=== PATIENT | male | born 1990 | race Caucasian/White ===

== ENCOUNTER 2019-10-02 08:56 | Outpatient (RCR) | payer OTHER, SELFPAY | END 2019-10-15 23:59 | disposition home or self-care (01) | LOC: SOT 08:56 | PROVIDERS: PCP Family Medicine; Referring Provider Family Medicine; Visit Provider Family Medicine | DX: S61.209D Unspecified open wound of unspecified finger without damage to nail, subsequent encounter (principal) | CPT/HCPCS: 97110; 97140; 97166 ==

== ENCOUNTER 2019-10-16 06:00 | Outpatient (RCR) | payer OTHER, SELFPAY | END 2019-10-29 23:00 | disposition home or self-care (01) | LOC: SOT 06:00 | PROVIDERS: PCP Family Medicine; Referring Provider Family Medicine; Visit Provider Family Medicine | DX: S61.209D Unspecified open wound of unspecified finger without damage to nail, subsequent encounter (principal); X58.XXXD Exposure to other specified factors, subsequent encounter | CPT/HCPCS: 97110 ==

== ENCOUNTER 2021-12-25 18:14 | Emergency (ER) | payer OTHER, SELFPAY ==
[2021-12-25 18:26] VITALS: TEMP 37; BMI 40.6
[2021-12-25 18:29] VITALS: BP 157/96; PULSE 93; RESP 18; O2SAT 97
--- NOTE | 2021-12-25 18:39 | XRR_ITS ---
PROCEDURE INFORMATION: Exam: XR Right Ankle Exam date and time: 12/25/2021 6:51 PM Age: 31 years old Clinical indication: Injury or trauma; Fall; Dislocation and sprain or strain; Ankle; Right; Additional info: Fall, pain and deformity R ankle TECHNIQUE: Imaging protocol: Radiologic exam of the Right ankle. Views: 3 or more views. COMPARISON: No relevant prior studies available. FINDINGS: Bones/joints: Displaced fractures through the medial malleolus and posterior aspect of the distal tibia with dislocation of the tibiotalar joint. Partially visualized displaced fracture of the mid/distal fibular diaphysis. Soft tissues: Soft tissue swelling around the ankle. XR/XR ankle RT min 3V* [id number] IMPRESSION: Displaced fractures through the medial malleolus and posterior aspect of the distal tibia with dislocation of the tibiotalar joint. There is also a partially visualized displaced fracture of the mid/distal fibular diaphysis.
[2021-12-25 19:02] VITALS: RESP 18
[2021-12-25] MEDS: HYDROmorphone 1 mg/mL INJ 1 mL IVP ×3 (19:02→20:33)
[2021-12-25] MEDS: ondansetron 2 mg/ML SDV 2 mL 4 MG IVP (19:02)
[2021-12-25 19:10] VITALS: PULSE 80
[2021-12-25] MEDS: midazolam 1 mg/mL INJ 2 mL 2 MG IVP (19:51)
--- NOTE | 2021-12-25 20:01 | XRR_ITS ---
PROCEDURE INFORMATION: Exam: XR Right Ankle Exam date and time: 12/25/2021 8:05 PM Age: 31 years old Clinical indication: Injury or trauma; Fall; Fracture, traumatic; Closed fracture; Ankle; Left; Not specified; Additional info: Post reduction TECHNIQUE: Imaging protocol: Radiologic exam of the Right ankle. Views: 1 or 2 views. COMPARISON: CR (LOW EXM, ) 12/25/2021 6:51 PM FINDINGS: Tubes, catheters and devices: There is a splint. Bones/joints: There is a comminuted fracture of the mid diaphysis right fibula and transverse fracture through the medial malleolus. Posterior malleolar fracture fragment is also present best appreciated on the oblique lateral view. There is improved alignment of the ankle dislocation status post reduction however the tibia is still displaced/subluxing posteriorly with respect to the talus. Soft tissues: There is soft tissue edema. XR/XR ankle RT 2V [id number] IMPRESSION: 1. There is a comminuted fracture of the mid diaphysis right fibula and transverse fracture through the medial malleolus. Posterior malleolar fracture fragment is also present best appreciated on the oblique lateral view. 2. There is improved alignment of the ankle dislocation status post reduction however the tibia is still displaced/subluxing posteriorly with respect to the talus.
--- NOTE | 2021-12-25 21:06 | CTR_ITS ---
PROCEDURE INFORMATION: Exam: CT Right Lower Extremity Without Contrast, Ankle Exam date and time: 12/25/2021 9:15 PM Age: 31 years old Clinical indication: Injury or trauma; Fall; Fracture, traumatic; Closed fracture; Ankle; Right; Not specified; Additional info: Ankle FX. TECHNIQUE: Imaging protocol: CT of the Right lower extremity without contrast was performed. Exam focused on the ankle. Radiation optimization: All CT scans at this facility use at least one of these dose optimization techniques: automated exposure control; mA and/or kV adjustment per patient size (includes targeted exams where dose is matched to clinical indication); or iterative reconstruction. COMPARISON: CR XR ankle RT 2V [id number] 12/25/2021 8:05 PM RADIATION DOSE METRICS: Total DLP (mGy-cm): 118.35 FINDINGS: Bones/joints: There is a splint. There is a transverse fracture through the medial malleolus and fracture of the posterior malleolus with 5 mm proximal displacement with respect to the articular surface of the tibia. No acute fracture or osteochondral defect of the talus. Fracture of the fibula diaphysis is not included in the field of view except on the citrus fruit packer. There is widening of the distal tibiofibular syndesmosis with a fracture fragment between the distal tibia and fibula measuring 9 x 8 x 5 mm that appears to be originating from the posterior lateral tibia. Distance between the distal tibia and fibula at the ankle joint is 1.4 cm. There is no dislocation of the ankle joint and good reduction is noted from the prior dislocation. There is still mild medial displacement of the tibia with respect to the talar articular surface secondary to the marked widening of the tibiofibular syndesmosis. No additional fracture is identified in the hindfoot. The Lisfranc joint alignment is intact. Soft tissues: There is abundant soft tissue edema. CT/CT ankle RT wo con* [id number] IMPRESSION: Fractures of the distal tibia including the medial malleolus, posterior malleolus and comminuted fracture of the diaphysis of the fibula only visualized on the citrus fruit packer. There is marked widening of the distal tibiofibular syndesmosis with mild medial displacement/subluxation of the tibia with respect to the talus but otherwise there is good reduction of the previously visualized ankle dislocation.
--- NOTE | 2021-12-25 21:42 | W.ED.EXTPRO ---
HPI - Extremity Problem General: Chief complaint: Extremity Injury, Lower Stated complaint: right ankle injury Time Seen by Provider: 12/25/21 18:19 Source: patient History of Present Illness: 31-year-old male who [place]. He experienced immediate right ankle and leg pain. He has a deformity. EMS was called, and splint was placed. No bleeding. No significant numbness no other injury. The patient did not hit his head. He remembers the event. MD Complaint: extremity pain and extremity swelling Onset (ago): hour(s) Pain Consistency: constant Location: right and lower extremity Quality: stabbing and aching Radiation: proximal Relieving factors: nothing Exacerbating factors: range of motion Associated symptoms: Deny chest pain, fever(s) or short of breath Review of Systems Const: Denies: fever(s) Eyes: Denies: change in vision Card: Denies: chest pain or palpitations Resp: Denies: dyspnea, productive cough or non-productive cough GI: Denies: abdominal pain, nausea or vomiting Musc: Denies: neck pain or back pain Neuro: Denies: headache(s) Physical Exam Const: GENERAL APPEARANCE: cooperative; not comfortable, not in distress, not ill appearing and not frail appearing HENMT: COMMON NORMALS: normocephalic, atraumatic and Normal external nose present HEAD & SCALP: normocephalic and atraumatic FACE & SINUS: normal facial exam and face symmetric NOSE: Normal external nose present Eye: COMMON NORMALS: Equal, round and reactive pupils present and EOMs intact bilaterally PUPIL: Yes Equal, round and reactive pupils present Neck/C-Spine: COMMON NORMALS: full ROM GENERAL: Yes trachea midline Chest: CHEST: Yes Symmetrical chest wall rise Resp: COMMON NORMALS: normal respiratory effort, No use of accessory muscles and clear to auscultation bilaterally AUSCULTATION: clear to auscultation bilaterally Cardio: COMMON NORMALS: regular rate and regular rhythm RATE: regular rate RHYTHM: regular rhythm GI: COMMON NORMALS: Normal to inspection, nondistended, normoactive bowel sounds present and Soft to palpation PALPATION: Yes Soft to palpation Extremity: NARRATIVE EXTREMITY EXAM: Exam of the right lower extremity reveals rotational deformity of the right ankle. There is soft tissue swelling. There is tenderness along the ankle, as well as the distal leg. No knee joint line tenderness. Pulses are intact. Capillary refill is normal. Sensation is intact. No open sites. There is some mild skin tenting of the medial malleolus Neuro: BRAEDEN COMA SCALE: document GCS findings [place] coma scale eye opening: Spontaneous [place] coma scale verbal response: Orientated [place] coma scale motor response: Obey commands Braeden coma scale total score: 15 Procedures Orthopedic Fracture Reduction Fracture #1: Time Out Performed: Yes Side: right Fracture Reduction Location: tibia and fibula Analgesia: procedural sedation Technique: direct manipulation and traction/counter-traction Post Reduction X-rays Demonstrate: acceptable reduction Post-reduction neuro exam: intact Post-reduction vascular exam: intact Splint Applied: Yes Patient Tolerated Procedure: well and no complications Procedural Sedation Indication: fracture/dislocation reduction ASA Class: II Preparation: groundwater monitoring technician applied, pulse oximeter, supplemental O2 applied, suction/airway equipment at bedside and IV secured Midazolam dose (mg): 2 IV Etomidate dose (mg): 20 Patient Tolerated Procedure: well and no complications Complications: none Course Vital Signs: Vital signs: Vital Signs Temperature 98.6 F 12/25/21 18:26 Pulse Rate 80 12/25/21 19:10 Respiratory Rate 18 12/25/21 19:02 Blood Pressure 157/96 12/25/21 18:29 Pulse Oximetry 97 12/25/21 18:29 MDM - Extremity (Nontraumatic) Medical Decision Making Patient with a fracture dislocation of the ankle. Medial malleolus posterior malleolus, and mid fibula. He was sedated, reduced, and placed in a stirrup and posterior long-leg splint. Spoke with foot/ankle surgery. They request a CT of the ankle on the way out the door. Patient is comfortable going home, to follow-up next week for likely ORIF. Surgeon is aware. Lab Data Radiology Impressions Ankle X-Ray 12/25/21 20:01 IMPRESSION: 1. There is a comminuted fracture of the mid diaphysis right fibula and transverse fracture through the medial malleolus. Posterior malleolar fracture fragment is also present best appreciated on the oblique lateral view. 2. There is improved alignment of the ankle dislocation status post reduction however the tibia is still displaced/subluxing posteriorly with respect to the talus. Ankle CT 12/25/21 21:06 IMPRESSION: Fractures of the distal tibia including the medial malleolus, posterior malleolus and comminuted fracture of the diaphysis of the fibula only visualized on the fighter pilot. There is marked widening of the distal tibiofibular syndesmosis with mild medial displacement/subluxation of the tibia with respect to the talus but otherwise there is good reduction of the previously visualized ankle dislocation. Discharge Plan Discharge Patient Disposition: Home Clinical Impression: Ankle fracture Qualifiers: Encounter type: initial encounter Fracture type: closed Laterality: right Qualified Code(s): S82.891A - Other fracture of right lower leg, initial encounter for closed fracture Condition: Stable Prescriptions: New Percocet 7.5-325 mg tablet 1 tab PO Q6H PRN (Reason: pain) Qty: 12 0RF Discharge Orders: Discharge ED (Routine); Ordered 12/25/21 Ordered By: Jann Carcamo Referrals: Lam Rehman DPM [Physician] - 1-3 days Joel Umana MD [Primary Care Provider] - Patient Instructions: Ankle Fracture (ED), Opioid Safety Activity Restrictions/Additional Instructions: Call the orthopedic clinic on Monday. They will set you up for an appointment for surgical planning for your ankle. Ice very frequently for the next 48 hours especially. Pain medication as directed. Return for excruciating pain with movement of your toes, worsening pain despite treatment, fever, other concerning symptoms. Stay in your splint until seen by them. Coding Level of Care Code ED Bleach Range Operator for Brigette Fwyony Exam Comprehensive
== END 2021-12-25 21:32 | disposition home or self-care (01) ==
PROVIDERS: Emergency Provider Emergency Medicine; PCP Family Medicine
DX: S82.841A Displaced bimalleolar fracture of right lower leg, initial encounter for closed fracture (principal); S82.491A Other fracture of shaft of right fibula, initial encounter for closed fracture; W09.0XXA Fall on or from playground slide, initial encounter
CPT/HCPCS: 27752; 73600; 73610; 73700; 96374; 96375; 96376; 99285; J1170; J2250; J2405; J3490

== ENCOUNTER 2021-12-27 15:39 | Outpatient (CLI) | payer OTHER, SELFPAY | END 2021-12-27 15:40 | disposition home or self-care (01) | LOC: SPT 15:39 | PROVIDERS: PCP Family Medicine; Visit Provider Podiatrist Foot & Ankle Surgery | DX: S82.851D Displaced trimalleolar fracture of right lower leg, subsequent encounter for closed fracture with routine healing (principal); X58.XXXD Exposure to other specified factors, subsequent encounter | CPT/HCPCS: 97760; L4361 ==

== ENCOUNTER 2021-12-31 11:03 | Day surgery (SDC) | payer OTHER, SELFPAY ==
[2021-12-30 14:21] VITALS: BMI 40.6
[2021-12-31] VITALS (20 sets, daily range): BP systolic 139–179; BP diastolic 77–109; PULSE 96–117; RESP 12–24; TEMP 36.6–36.9; O2SAT 93–100
--- NOTE | 2021-12-31 | SCC_ITS ---
Procedure done: Open reduction internal fixation right trimalleolar fracture 16019 53.1 seconds of fluoroscopic guidance, for a cumulative dose of 1.9 mGy, was provided to Dr. Rehman by the radiology department. C-arm images of the RIGHT ankle were saved for the patient's permanent record. [facility]
--- NOTE | 2021-12-31 | XR_ITS ---
WS: [id number] INTRAOPERATIVE TECHNIQUE: 4 Spot fluoroscopic images for intraoperative purposes. FLUOROSCOPY TIME: 53.1 seconds CLINICAL INFORMATION: [facility] COMPARISON: None. FINDINGS: Plate and screw fixation across the spiral fracture mid fibula shaft. Screw fixation across the ankle syndesmosis and medial malleolus. XR/XR ankle RT min 3V* [id number] IMPRESSION: Images obtained for intraoperative purposes.
[2021-12-31] MEDS: gabapentin 300 mg Capsule PO (11:35)
[2021-12-31] MEDS: CELEcoxib 200 mg Capsule 400 MG PO (11:35)
[2021-12-31] MEDS: sodium chloride 0.9% 1,000 ML 30 ML IV (11:35)
--- NOTE | 2021-12-31 12:39 | ANES.PREANE2 ---
Pre-Anesthetic Assessment Height/Weight: Height 1.85 m Weight 139.706 kg Temp Pulse Resp BP Pulse Ox O2 Del Method 98.4 F 117 H 18 167/109 96 12/31/21 11:23 12/31/21 11:23 12/31/21 11:23 12/31/21 11:23 12/31/21 11:23 12/31/21 11:23 Preop Diagnosis: Right trimalleolar fracture Operation Date: 12/31/21 12:40 Proposed Procedures p Open reduction internal fixation right trimalleolar fracture 43593,S82.851A(Right) - Lam Rehman DPM Familial anesthetic complications: None Was Beta Lianne taken within 24 hours: N/A Was Clonidine taken within 24 hours: N/A Last intake: Intake Last Liquid Date 12/30/21 Last Liquid Time 06:00 Last Solid Date 12/30/21 Last Solid Time 20:00 Social No alcohol and No tobacco Exam alert, oriented x 3, clear to auscultation bilaterally and regular rate & rhythm Airway Submandibular: within normal limits Cervical ROM: within normal limits Mallampati: Class I Dentition: full History/ROS No significant complaints Pulmonary None reported CV/HEM None reported None reported Hepatic None reported GI None reported Metabolic None reported Musc/skel None reported Neuropsych None reported Anesthetic Plan ASA status: 1 Anesthesia: Anesthesia Evaluation and General Other: We discussed risk and benefits of general anesthesia including PONV, sore throat (sometimes severe), corneal abrasion, positioning and peripheral nerve injuries, life threatening allergic reaction, post operative ICU admission requiring prolonged intubation, stroke, heart attack, , and rare incidences of recall. Patient consents to proceed with general anesthesia. After time out sterile prep, using sterile technique, and using real time US guidance for target selection needle was inserted with real time visualization of needle entry and real time visualization of needle advancement toward intended target. Negative aspiration. LA injected incrementally with negative aspiration every 5 cc and real time US visualization of LA spread throughout procedure. Tolerated well. Image(s) saved. Patient decline pre op nerve block. Consents to PRN post op popliteal and adductor canal blocks if needed. Plan multimodal analgesia with general and possible post op block. Risk of > 500 ml blood loss (7ml/kg in children): No Medications/Allergies Home Medications Medication Instructions Recorded Confirmed Last Taken Type Cam Boot to the Right #1 ea 12/27/21 12/27/21 Unknown Rx ondansetron HCl 8 mg tablet 8 mg PO Q8H PRN nausea and 12/27/21 12/31/21 12/29/21 Rx vomiting #20 tabs oxycodone-acetaminophen 5 mg-325 1 tab PO Q6H PRN pain 7 days #28 12/28/21 12/31/21 12/31/21 Rx mg tablet (Percocet) tabs Allergies Allergy/AdvReac Type Severity Reaction Status Date / Time No Known Allergies Allergy Verified 12/30/21 14:19 Current Medications Generic Name Dose Route Start Last Admin Trade Name Freq PRN Reason Stop Dose Admin Sodium Chloride 1,000 mls @ 30 mls/hr 12/31/21 11:15 12/31/21 11:35 Sodium Chloride 0.9% IV 01/01/22 11:14 30 mls/hr .Q24H DAWNA Administration Data Anesthesia Cardiac Studies: No Data to Display
[2021-12-31] MEDS: acetaminophen 1,000 MG/100 ML PIGGYBACK 400 MG IV (12:57)
[2021-12-31] MEDS: magnesium sulfate premix 2 GM/50 ML PIGGYBACK IV (13:14)
--- NOTE | 2021-12-31 13:18 | W.PM.OPSUD ---
Surgery/Procedure H&P Update DATE OF PROCEDURE: December 31, 2021 DATE H&P PERFORMED: 12/27/21 CHANGES TO PREVIOUS DOCUMENTATION: none PREOP DIAGNOSIS: Right trimalleolar fracture PLANNED PROCEDURE: Operation Date: 12/31/21 12:40 Proposed Procedures p Open reduction internal fixation right trimalleolar fracture 83622,S82.851A(Right) - Lam Rehman DPM
[2021-12-31] MEDS: clindamycin 600 MG/50 ML PREMIX 100 MG IV (13:30)
[2021-12-31] MEDS: lidocaine 1% INJ 50 mL 20 ML INJECTION (14:14)
--- NOTE | 2021-12-31 15:59 | PM.OP ---
Operative Report Date of procedure: December 31, 2021 Pre-op diagnosis: Right trimalleolar fracture Post-op diagnosis: Right trimalleolar fracture Post-op findings: None Procedure done: Open reduction internal fixation right trimalleolar fracture 55457 Implants: [place] 28 one third tubular plate fibula and release syndesmotic screw. [place] 28 4.0 millimeter screw x2 at medial malleolus. Specimens removed/disposition: None Pathology: None Surgeon: Lam Rehman D.P.M. Driving School Instructor: Juan Pablo Estimated blood loss: 20 See intraoperative documentation IV fluids: None Urine output: None Complications: None Findings: None Brief History: Right trimalleolar fracture date of injury 12/25/2021, underwent closed reduction with excellent improvement in alignment of fracture and relocation of the talus within the mortise. Patient examined and evaluated, findings and treatment options were discussed with patient at length.? Educated patient on the importance of surgical intervention due to the gross instability of his ankle involving a high fibular fracture, displaced medial malleolus fracture and posterior malleolus fracture.? Patient is agreeable and like to proceed.? Will schedule for this Monday to allow soft tissue edema to subside.? There is no fracture blisters or lacerations or abrasions to the right ankle.? Will continue to monitor closely.? Tentatively scheduled for ORIF this Monday outpatient.? I reviewed at length with the patient, the risks, potential complications, benefits, alternatives, expectations, and typical outcomes associated with the surgery. The risks and potential complications were explained in detail, including but not limited to infection, wound dehiscence or soft tissue complications, bleeding and hematoma, chronic edema, neuritis or nerve damage producing numbness or chronic pain, CRPS, failure to relieve pain or worsening pain, thick / painful / unsightly scar, limited motion / stiffness, malposition, delayed union, malunion, or nonunion, fracture, reaction to implants, anesthetic complications, venous thromboembolism, and deformity recurrence.? I discussed the notion of no regrets with the patient as it pertains to complications and outcomes. The patient seemed to understand the nature of the proposed care and required convalescence. They asked appropriate questions, answered to their satisfaction. They are aware no guarantees can be made as to a satisfactory outcome and they understand there may be other possible unforeseen complications or outcomes not listed here that will be treated accordingly if they arise. There were no written or implied guarantees given to the patient. They gave informed consent to proceed. Procedure: Under mild sedation the patient was brought to the operating room and placed on the operating table in supine position. A timeout was performed. Anesthesia was then administered by the anesthesia service. Of note patient declined popliteal block preoperatively. Well-padded pneumatic tourniquet applied to the high thigh right lower extremity. The right lower extremity was then scrubbed, prepped and draped utilizing normal aseptic technique. Right foot ankle and leg were then exanguinated with an Esmarch bandage and the tourniquet inflated to 250 mmHg. Attention was directed to the lateral aspect of the right fibula where a linear longitudinal incision was made directly over the lateral fibula distally with a #15 blade. Dissection was carried down through subcutaneous tissue to the layer of crural fascia which was incised with further dissection down the layer of periosteum utilizing sharp and blunt technique. Care was taken to retract and preserve neurovascular and tendinous structures. All bleeders were ligated and cauterized as necessary. Fibula was pulled out to length and a one third tubular plate was utilized to fixate the fibular fracture with locking screws both proximal and distal with excellent bony apposition and compression noted. Attention was then directed to the medial malleolus where a curvilinear incision was made at the medial ankle directly over the medial malleolus with a #15 blade with dissection carried down through subcutaneous tissue to the layer periosteum utilizing sharp and blunt technique. Care was taken to retract and preserve neurovascular and tendon structures. All bleeders were ligated and cauterized as necessary. Medial malleolus fracture was curettaged of hematoma followed by saline flush. Periosteal flap was excised that was within the fracture. The fracture was then reduced and fixated utilizing standard AO technique with 2 screw fashion and parallel these were [place] 28 for 0.0 mm headed partially-threaded screws with excellent bony apposition and compression noted. AP, oblique and lateral views confirmed the screws maintained alignment of the medial malleolus and did not violate the ankle mortise. Cotton hook test indicated syndesmotic disruption with diastases and increased tib-fib clear space. A [place] 28 release screw was inserted from lateral to medial in a Quadra cortical fashion utilizing standard technique recommended by manufacture under a 2 finger tightness with a torque grain combine driver. This was done with ankle joint in dorsiflexion and syndesmotic reduction clamps employed. Screw was advanced parallel to the ankle mortise and approximately 2 cm proximal. Smooth range of motion appreciated at the right ankle. 3 standard views showed congruent ankle mortise without hardware violating the ankle joint. The incisions were flushed with copious amounts of sterile saline solution followed by closure with periosteum reapproximated utilizing 2-0 Vicryl. Subcutaneous tissue with 3-0 Vicryl and skin with skin slim both laterally and medially. The incisions were then dressed with Adaptic, sterile 4 x 4, Kerlix and Hernan wrap followed by application of cam boot. Tourniquet was then deflated and a prompt hyperemic response was noted to the distal digits of the right foot. Patient tolerated the procedure and anesthesia well and was transferred to the PACU with vital signs stable and vascular status intact. Following a period of postoperative monitoring he will be discharged home. He is to remain strict nonweightbearing to the right lower extremity and elevate at all times while resting. Advised 81 mg aspirin to be taken morning after surgery and to be continued once daily during the perioperative period until weightbearing status resumes. This will potentially reduce the risk of deep vein thrombosis.
[2021-12-31] MEDS: hyDRALAzine 20 mg/mL INJ 1 mL 10 MG IVP (16:33)
--- NOTE | 2021-12-31 16:57 | SUR.PHASEI ---
16:15 RECEIVED PATIENT FROM OR STAFF. VENTILATING WELL. NSR ON MONITOR. TREATED FOR HYPERTENSION BY ANESTHESIA. 16:30 ORAL AIRWAY REMOVED. AIRWAY CLEAR. REPSONDING TO VERBAL COMMANDS. MEDICATED FOR HYPERTENSION. 16:45 TOLERATING ICE CHIPS.
[2021-12-31] MEDS: HYDROmorphone 1 mg/mL INJ 1 mL 0.5 MG IVP (17:08)
[2021-12-31] MEDS: labetalol 5 mg/mL SDV 20mL 100 MG (17:12)
--- NOTE | 2021-12-31 17:23 | SUR.PHASEI ---
17:08 MEDICATED FOR PAIN AND HYPERTENSION PER V/O DOCTOR JARROD. 17:20 STATES PAIN AT 3 ON 1-10 SCALE.
[2021-12-31] MEDS: oxyCODONE-APAP 10-325 mg Tablet 1 TAB PO (18:03)
--- NOTE | 2022-01-02 08:58 | ANE.PACU2 ---
Inpatient post-anesthesia follow up: Airway intact: Yes Vital signs: Temperature 98.4 F Pulse Rate 99 Respiratory Rate 18 Blood Pressure 164/95 Pulse Oximetry 94 Oxygen Delivery Me thod Room Air Oxygen Flow Rate 3 Fraction of Inspir ed Oxygen Hydration adequate: Yes Nausea and vomiting: No Pain level: 2 Mental status: Baseline
== END 2021-12-31 18:35 | disposition home or self-care (01) ==
PROVIDERS: PCP Family Medicine; Visit Provider Podiatrist Foot & Ankle Surgery
PROC: (CPT 27822; principal; 2021-12-31 12:30)
DX: S82.851A Displaced trimalleolar fracture of right lower leg, initial encounter for closed fracture (principal); X58.XXXA Exposure to other specified factors, initial encounter
CPT/HCPCS: 27822; 73610; 76000; C1713 ×2; J0360; J1100; J1170; J1885; J2405; J2704; J3010; J3475; J3490; J7030

== ENCOUNTER → 2022-01-13 14:53 | Outpatient (BNVA) | payer OTHER, SELFPAY | PROVIDERS: PCP Family Medicine; Visit Provider Podiatrist Foot & Ankle Surgery | DX: S82.891D Other fracture of right lower leg, subsequent encounter for closed fracture with routine healing (principal); X58.XXXD Exposure to other specified factors, subsequent encounter | CPT/HCPCS: 73610 ==

== ENCOUNTER → 2022-01-27 14:57 | Outpatient (BNVA) | payer OTHER, SELFPAY | PROVIDERS: PCP Family Medicine; Visit Provider Podiatrist Foot & Ankle Surgery | DX: Z98.890 Other specified postprocedural states (principal); S82.891D Other fracture of right lower leg, subsequent encounter for closed fracture with routine healing; X58.XXXD Exposure to other specified factors, subsequent encounter | CPT/HCPCS: 73610 ==

== ENCOUNTER → 2022-02-10 09:44 | Outpatient (BNVA) | payer OTHER, SELFPAY | PROVIDERS: PCP Family Medicine; Visit Provider Podiatrist Foot & Ankle Surgery | DX: S82.891D Other fracture of right lower leg, subsequent encounter for closed fracture with routine healing (principal); X58.XXXD Exposure to other specified factors, subsequent encounter; Z98.890 Other specified postprocedural states | CPT/HCPCS: 73610 ==

== ENCOUNTER 2022-03-03 | Outpatient (CLI) | payer OTHER, SELFPAY | END 2022-03-03 23:00 | disposition home or self-care (01) | LOC: SPT 03-16 10:56 | PROVIDERS: PCP Family Medicine; Visit Provider Podiatrist Foot & Ankle Surgery | DX: Z47.89 Encounter for other orthopedic aftercare (principal) | CPT/HCPCS: 97760; L1902 ==

== ENCOUNTER → 2022-03-03 13:23 | Outpatient (BNVA) | payer OTHER, SELFPAY | PROVIDERS: PCP Family Medicine; Visit Provider Podiatrist Foot & Ankle Surgery | DX: S82.891D Other fracture of right lower leg, subsequent encounter for closed fracture with routine healing (principal); X58.XXXD Exposure to other specified factors, subsequent encounter; Z98.890 Other specified postprocedural states | CPT/HCPCS: 73610 ==

== ENCOUNTER → 2022-03-31 15:08 | Outpatient (BNVA) | payer OTHER, SELFPAY | PROVIDERS: PCP Family Medicine; Visit Provider Podiatrist Foot & Ankle Surgery | DX: S82.899D Other fracture of unspecified lower leg, subsequent encounter for closed fracture with routine healing (principal); X58.XXXD Exposure to other specified factors, subsequent encounter; Z98.890 Other specified postprocedural states | CPT/HCPCS: 73610 ==

== ENCOUNTER → 2024-02-05 16:11 | Outpatient (BNVA) | payer OTHER, SELFPAY | PROVIDERS: PCP Family Medicine; Visit Provider Family Medicine | DX: R19.8 Other specified symptoms and signs involving the digestive system and abdomen (principal) | CPT/HCPCS: 87400 ==

== ENCOUNTER → 2024-03-15 09:52 | Outpatient (BNVA) | payer OTHER, SELFPAY | PROVIDERS: PCP Family Medicine; Visit Provider Family Medicine | DX: I10 Essential (primary) hypertension (principal); Z68.41 Body mass index [BMI] 40.0-44.9, adult | CPT/HCPCS: 80053; 80061; 83036; 84439; 84443; 85025 ==

== ENCOUNTER → 2024-09-17 07:59 | Outpatient (BNVA) | payer OTHER, SELFPAY | PROVIDERS: PCP Family Medicine; Visit Provider Podiatrist Foot & Ankle Surgery | DX: M25.571 Pain in right ankle and joints of right foot (principal); G89.29 Other chronic pain; Z98.890 Other specified postprocedural states; T84.84XA Pain due to internal orthopedic prosthetic devices, implants and grafts, initial encounter; Y79.2 Prosthetic and other implants, materials and accessory orthopedic devices associated with adverse incidents | CPT/HCPCS: 73590; 73610 ==

== ENCOUNTER 2024-10-04 05:59 | Day surgery (SDC) | payer OTHER, SELFPAY ==
[2024-10-04] VITALS (7 sets, daily range): BP systolic 131–152; BP diastolic 87–102; PULSE 80–96; RESP 16–18; TEMP 36.2–36.4; O2SAT 94–100; BMI 44.1
[2024-10-04] MEDS: sodium chloride 0.9% 1,000 ML 30 ML IV (06:30)
--- NOTE | 2024-10-04 06:48 | ANES.PREANE2 ---
Pre-Anesthetic Assessment Height/Weight: Height 1.85 m Weight 151.953 kg Temp Pulse Resp BP Pulse Ox O2 Del Method 97.6 F 96 17 152/102 100 Room Air 10/04/24 06:18 10/04/24 06:18 10/04/24 06:18 10/04/24 06:18 10/04/24 06:18 10/04/24 06:18 Preop Diagnosis: Painful hardware right ankle Operation Date: 10/04/24 07:55 Proposed Procedures p Hardware Removal RIGHT Ankle(Right) - Lam Rehman DPM Familial anesthetic complications: NOne Was Beta Lianne taken within 24 hours: N/A Was Clonidine taken within 24 hours: N/A Last intake: Intake Last Liquid Date 10/03/24 Last Liquid Time 22:00 Last Solid Date 10/03/24 Last Solid Time 22:00 Social No alcohol and No tobacco Exam alert, oriented x 3, clear to auscultation bilaterally and regular rate & rhythm Airway Mallampati: Class IV Dentition: chipped ( Fractured ) Comments: Comments: large neck circumference, bolanos CV/HEM Hypertension Metabolic Morbid Obesity Neuropsych Bipolar Anesthetic Plan ASA status: 3 Anesthesia: MAC Risk of > 500 ml blood loss (7ml/kg in children): No Medications/Allergies Home Medications ?Medication ?Instructions ?Recorded ?Confirmed ?Last Taken ?Type fluticasone propionate 50 2 spray intranasal DAILY #16 grams 07/01/24 10/04/24 10/03/24 Rx mcg/actuation nasal spray,suspension (Flonase Allergy Relief) levocetirizine 5 mg tablet (Xyzal) 5 mg PO DAILY #90 tabs 07/01/24 10/04/24 10/03/24 Rx losartan 100 mg tablet 100 mg PO DAILY #90 tabs 09/02/24 10/04/24 10/03/24 Rx Allergies Allergy/AdvReac Type Severity Reaction Status Date / Time No Known Allergies Allergy Verified 10/04/24 06:11 Current Medications Generic Name Dose Route Start Last Admin Trade Name Freq PRN Reason Stop Dose Admin Sodium Chloride 1,000 mls @ 30 mls/hr 10/04/24 06:15 10/04/24 06:30 Sodium Chloride 0.9% IV 10/05/24 06:14 30 mls/hr .Q24H DAWNA Administration PFSH Anesthesia Medical History Bipolar 1 disorder BMI 40.0-44.9, adult Essential hypertension Family History Grandfather Cancer Grandmother Colon cancer Hypertension Heart disease Mother Lung cancer Multiple sclerosis Schizophrenia Bipolar disorder Social History Smoking and tobacco/nicotine status: current some day tobacco/nicotine user Alcohol intake: never Substance/Drug Use: current
--- NOTE | 2024-10-04 06:50 | W.PM.OPSUD ---
Surgery/Procedure H&P Update DATE OF PROCEDURE: October 04, 2024 DATE H&P PERFORMED: 09/17/24 H&P UPDATE INFORMATION: I have reviewed H&P completed within last 30 days, I have examined patient prior to procedure, No changes to prior documentation and Risks and benefits of the procedure reviewed PREOP DIAGNOSIS: Painful hardware right ankle PLANNED PROCEDURE: Operation Date: 10/04/24 07:55 Proposed Procedures p Hardware Removal RIGHT Ankle(Right) - Lam Rehman DPM
--- NOTE | 2024-10-04 07:45 | P.OP_ITS ---
Operative Report Date of procedure: October 04, 2024 Pre-op diagnosis: Chronic pain of right ankle M25.571; G89.29 History of ankle surgery Z98.890 Painful orthopaedic hardware T84.84XA Post-op diagnosis: Chronic pain of right ankle M25.571; G89.29 History of ankle surgery Z98.890 Painful orthopaedic hardware T84.84XA Procedure done: Hardware removal right ankle. CPT code 83541 Implants: 4-0 Vicryl, 4-0 nylon. Specimens removed/disposition: None Pathology: None Surgeon: Lam Rehman DPM Director Of Enrollment: Zeenat Estimated blood loss: 2 mL 14 min IV fluids: see intraoperative documentation Urine output: No urine output Complications: no complications Brief History: - Imaging: X-ray of the right ankle confirms consolidation of fracture with an unreleased syndesmotic screw causing a halo effect. Assessment and Plan 34-year-old male with history of right ankle trimalleolar fracture presenting with persistent right ankle pain. The unresolved syndesmotic screw contributes to persistent pain and swelling. X-ray imaging shows a well-healed fracture, but the unreleased screw appears responsible for the patient's symptoms. 1. Right Ankle Trimalleolar Fracture Status Post Orif The recommended management plan includes the removal of the syndesmotic screw and potential ankle arthroscopy for comprehensive evaluation and relief of symptoms. This intervention is intended to address mobility restriction and provide symptomatic relief. The patient is advised to replace ibuprofen with Meloxicam and adjust the surgical timing according to his work obligations. 2. Persistent Right Ankle Pain Continue pain management with Meloxicam and monitor the patient?s response to the medication. Observe the patient's progress following surgical intervention and ensure improvement in symptoms. - Stop taking ibuprofen to avoid potential side effects. - Begin taking Meloxicam, 15 mg, once daily. - Schedule the screw removal surgery at a convenient time for work leave. - Monitor for any increase in pain and seek medical attention if required. - Keep track of symptom improvement following surgery. The decision-making focuses on the unresolved right ankle syndesmotic screw causing persistent pain despite previous ORIF surgery. The syndesmotic screw's lack of release has been determined to contribute to patient discomfort and swelling. It was advised to remove the screw, addressing the mechanical issues, with concurrent arthroscopic evaluation for potential intra-articular injuries. Meloxicam is recommended to replace ibuprofen due to potential complications associated with long-term use. The primary goal is to restore ankle function and improve quality of life through these interventions. Considerations include post-operative weightbearing protocols and patient work obligations. Patient wishes to proceed with hardware removal and ankle scope would like to have this scheduled outpatient October 04. I reviewed at length with the patient, the risks, potential complications, benefits, alternatives, expectations, and typical outcomes associated with the surgery. The risks and potential complications were explained in detail, including but not limited to infection, wound dehiscence or soft tissue complications, bleeding and hematoma, chronic edema, neuritis or nerve damage producing numbness or chronic pain, CRPS, failure to relieve pain or worsening pain, thick / painful / unsightly scar, limited motion / stiffness, malposition, delayed union, malunion, or nonunion, fracture, reaction to implants, anesthetic complications, venous thromboembolism, and deformity recurrence. I discussed the notion of no regrets with the patient as it pertains to complications and outcomes. The patient seemed to understand the nature of the proposed care and required convalescence. They asked appropriate questions, answered to their satisfaction. They are aware no guarantees can be made as to a satisfactory outcome and they understand there may be other possible unforeseen complications or outcomes not listed here that will be treated accordingly if they arise. There were no written or implied guarantees given to the patient. They gave informed consent to proceed. Procedure: Under mild sedation the patient was brought to the operating room and remained on the gurney in supine position. A timeout was performed. Anesthesia was then administered by the anesthesia service. Local anesthesia was injected by myself consisting of 20 cc of 0.5% Marcaine plain and 20 cc of Exparel. Marcaine was infiltrated at the operative site in a V-block fashion and Exparel subcutaneous ly proximal to the operative site in a grid like fashion. Well-padded pneumatic tourniquet applied to the right high calf. Right lower extremity was scrubbed, prepped and draped utilizing normal aseptic technique. Right foot and ankle were exanguinated with an Esmarch bandage and tourniquet inflated to 250 mmHg. Attention was directed to the right lateral ankle where a prominent screw head corresponding to the syndesmotic screw was palpated directly over this screw head an incision was made through skin with a #15 blade with dissection carried down through subcutaneous tissue utilizing sharp and blunt technique. Care was taken to retract and preserve neurovascular and tendinous structures. All bleeders were ligated and cauterized as necessary. Dissection carried down to bone and screw head was visualized and backed out in total without fragmentation or failure and passed her operative field. The incision was irrigated with saline solution. Smooth range of motion of the right ankle without crepitus appreciated. The incision was irrigated with further saline solution and closed in a layered fashion with subcutaneous tissue reapproximated with 4-0 Vicryl and skin reapproximated with 4-0 nylon. Dressing consisting of Xeroform, sterile 4 x 4 gauze, Kerlix and Hernan wrap along with a postop shoe. Tourniquet was deflated and a prompt hyperemic response is noted to the distal digits of the right foot. Patient tolerated procedure and anesthesia well and was transferred to the PACU with vital signs stable and vascular status intact. Following a period of postoperative monitoring, discharged home without home care instructions and scheduled follow-up.
[2024-10-04] MEDS: BUPivacaine liposome 13.3 mg/mL SDV 20 mL 266 MG INFILTRATI (07:55)
[2024-10-04] MEDS: ceFAZolin 3,000 MG in sodium chloride 0.9% (plus) 100 ML 200 MG IV (08:00)
[2024-10-04] MEDS: BUPivacaine 0.5% INJ 30 mL 20 ML INJECTION (08:00)
[2024-10-04] MEDS: HYDROcodone-acetaminophen 5-325 mg Tablet 1 TAB PO (09:10)
--- NOTE | 2024-10-04 09:35 | ANE.PACU2 ---
Inpatient post-anesthesia follow up: Airway intact: Yes Vital signs: Temperature 97.5 F Pulse Rate 82 Respiratory Rate 18 Blood Pressure 150/98 Pulse Oximetry 99 Oxygen Delivery Me thod Room Air Oxygen Flow Rate 10 Fraction of Inspir ed Oxygen Hydration adequate: Yes Nausea and vomiting: No Pain level: 1 Mental status: Baseline
== END 2024-10-04 09:34 | disposition home or self-care (01) ==
PROVIDERS: PCP Family Medicine; Visit Provider Podiatrist Foot & Ankle Surgery
PROC: (CPT 20680; principal; 2024-10-04 07:45)
DX: T84.84XA Pain due to internal orthopedic prosthetic devices, implants and grafts, initial encounter (principal); Z98.890 Other specified postprocedural states; I10 Essential (primary) hypertension; E66.01 Morbid (severe) obesity due to excess calories; Z68.41 Body mass index [BMI] 40.0-44.9, adult; F31.9 Bipolar disorder, unspecified; F17.200 Nicotine dependence, unspecified, uncomplicated
CPT/HCPCS: 20680; 73610; 76000; J0666; J0690; J2250; J2704; J3010; J3490; J7030; J9999